=== PATIENT | male | born 1965 | race Caucasian/White ===

== ENCOUNTER → 2022-04-22 | Outpatient (CLI) | payer OTHER | LOC: RAD 13:18 | DX: M16.11 Unilateral primary osteoarthritis, right hip (principal); I70.90 Unspecified atherosclerosis ==

== ENCOUNTER → 2022-05-25 | Outpatient (CLI) | payer OTHER ==
[2022-05-25 09:07] LABS: BASO # 0.04 K/mm3 (0.02-0.10); EOS # 0.26 K/mm3 (0.04-0.40); EOS % 3.6 % (0.0-4.0); HEMATOCRIT 44.3 % (42.0-52.0); HEMOGLOBIN 15.9 g/dL (13.5-18.0); LYMPH# 2.14 K/mm3 (1.50-4.00); MEAN CELL VOLUME 86 fl (78-100); MEAN CORPUSCULAR HEMOGLOBIN 31 pg (27-31); MEAN CORPUSCULAR HGB CONC 36 g/dL (33-37); MEAN PLATELET VOLUME 9.2 fl (7.4-10.4); MONO # 0.72 K/mm3 (0.20-0.80); PLATELET COUNT 213 K/mm3 (130-400); RED BLOOD COUNT 5.14 M/mm3 (4.20-5.60); RED CELL DISTRIBUTION WIDTH 12.4 % (11.5-14.5); WHITE BLOOD COUNT 7.2 K/mm3 (4.8-10.8)
[2022-05-25 09:40] LABS: ALBUMIN 4.1 g/dL (3.5-5.0)
[2022-05-25 09:41] LABS: CALCIUM 9.4 mg/dL (8.3-10.5)
[2022-05-25 09:42] LABS: TOTAL PROTEIN 6.8 g/dL (6.4-8.3)
[2022-05-25 09:44] LABS: TOTAL BILIRUBIN 0.7 mg/dL (0.2-1.2)
== END ==
LOC: LAB 08:42
PROVIDERS: Internal Medicine
DX: Z00.00 Encounter for general adult medical examination without abnormal findings (principal); Z12.5 Encounter for screening for malignant neoplasm of prostate; F90.0 Attention-deficit hyperactivity disorder, predominantly inattentive type; M25.551 Pain in right hip

== ENCOUNTER → 2023-10-18 | Outpatient (CLI) | payer BC | LOC: RAD 10:21 | DX: M51.36 Other intervertebral disc degeneration, lumbar region (principal); M47.816 Spondylosis without myelopathy or radiculopathy, lumbar region ==